=== PATIENT | male | born 1990 | race Two or more races ===

== ENCOUNTER 2020-12-09 13:45 | Inpatient (IN) | payer OTHER ==
[~2020-12-09] VITALS: Ht 182.9 cm; Wt 84.2 kg
--- NOTE | 2020-12-09 13:58 | NUR ---
BIB EMS FROM HOSPITAL [place] AFTER PT WAS CHANGING TIRE AND THE PRESSURE IN TIRE GOT SO HIGH THE TIRE BLEW UP ON PATIENT HAND. PT WENT TO ER IN [place] AND WAS FOUND TO HAVE THUMB,. MIDDLE FINGER LAC AND 5 FX IN THE RIGHT HAND. PT WAS FIVEN 4 MG ZOFRAN AND 8 MG MORPHINE AT OUTLYING FACILITY AND 100 MCG FENTANYL BY EMS. PT RESTING ON GURNEY. NADN. MONITORS APPLIED. VSS.
--- NOTE | 2020-12-09 14:23 | NUR ---
PT RESTING ON GURNEY. NADN. ALAN.
[2020-12-09] MEDS ORDERED: MORPHINE SULFATE 4 MG/ML, 1ML IVPush PRN (15:00)
[2020-12-09] MEDS ORDERED: MORPHINE SULFATE 4 MG/ML, 1ML ONE (15:05)
--- NOTE | 2020-12-09 15:14 | NUR ---
PT RESTING ON GURNEY. NADN. ALAN.
[2020-12-09] MEDS ORDERED: HYDROmorphone 1 MG/ML, 1ML INJ ONE (15:44)
[2020-12-09] MEDS ORDERED: HYDROmorphone 1 MG/ML, 1ML INJ IV STA (15:44)
[2020-12-09] MEDS ORDERED: HYDROmorphone 1 MG/ML, 1ML INJ IV ONE (16:00)
--- NOTE | 2020-12-09 16:02 | NUR ---
PT RESTING ON TITA. GEETA. VSS. PT STATES PAIN IMPROVED.
--- NOTE | 2020-12-09 16:14 | NUR ---
BREAK RN: PT RESTING IN ROOM. VS STABLE. NO ACUTE DISTRESS NOTED. CALL LIGHT IN PLACE WILL CONTINUE TO MONITOR WHILE PRIMARY RN IS ON BREAK.
[2020-12-09] MEDS ORDERED: CEFAZOLIN PMX 2GM/50ML 50 ML IVPB ONE (16:30)
--- NOTE | 2020-12-09 16:51 | NUR ---
PT RESTING ON GURNEY. NADN. ALAN.
--- NOTE | 2020-12-09 16:56 | NUR ---
REPORT GIVEN TO SUJIT POP RN. ALL QUESTIONS ANSWERED. AWAITING PT TRANSPORT.
[2020-12-09] MEDS ORDERED: ACETAMINOPHEN 325 MG TABLET PO PRN ×2 (17:00→18:00)
[2020-12-09] MEDS ORDERED: OXYcodone 5 MG/5 ML ORAL.SOL UDC PO PRN (18:00)
[2020-12-09] MEDS ORDERED: HYDROmorphone 1 MG/ML, 1ML INJ IVPush PRN (18:00)
[2020-12-09] MEDS ORDERED: PROMETHAZINE 25 MG/ML, 1ML IVPush PRN (18:00)
[2020-12-09] MEDS ORDERED: LABETALOL 5MG/ML, 20ML IV PRN (18:00)
[2020-12-09] MEDS ORDERED: ONDANSETRON 2MG/ML, 2ML IVPush PRN (18:00)
[2020-12-09] MEDS ORDERED: MEPERIDINE/PF 25MG/0.5ML IVPush PRN (18:00)
[2020-12-09] MEDS ORDERED: hydrALAzine 20 MG/ML, 1ML IV PRN (18:00)
--- NOTE | 2020-12-09 18:09 | NUR ---
PT RESTING ON GURNEY. NADN. ALAN.
[2020-12-09] MEDS ORDERED: CEFAZOLIN 2,000 MG in SODIUM CHLORIDE 0.9% 50 ML IV SCH (18:30)
[2020-12-09] MEDS ORDERED: MIDAZOLAM 1 MG/ML, 2ML ONE (18:38)
[2020-12-09] MEDS ORDERED: FENTANYL PF 250 MCG/5ML ONE (18:38)
[2020-12-09] MEDS ORDERED: DEXAMETHASONE 4 MG/ML, 5ML ONE (19:10)
[2020-12-09] MEDS ORDERED: PROPOFOL 10 MG/ML, 20ML ONE (19:10)
[2020-12-09] MEDS ORDERED: CEFAZOLIN 1,000 MG ONE (19:22)
[2020-12-09] MEDS ORDERED: ONDANSETRON 2MG/ML, 2ML ONE (19:41)
[2020-12-09] MEDS ORDERED: KETOROLAC 30 MG/1 ML ONE (19:42)
[2020-12-09] MEDS ORDERED: FENTANYL PF 100 MCG/2ML ONE (19:45)
[2020-12-09] MEDS ORDERED: OXYcodone 5 MG/5 ML ORAL.SOL UDC ONE (19:45)
[2020-12-09] MEDS ORDERED: ACETAMINOPHEN 650 MG/20.3 ML UDC ONE (19:45)
[2020-12-09] MEDS: FENTANYL PF 100 MCG/2ML IV PRN ×3 (20:05→20:25)
[2020-12-09] MEDS ORDERED: DIPHENHYDRAMINE 50 MG/ML, 1ML ONE (20:36)
[2020-12-09 21:00] VITALS: BP 146/81
[2020-12-09] MEDS ORDERED: DIPHENHYDRAMINE 50 MG/ML, 1ML IVPush PRN (21:00)
[2020-12-09] MEDS: SODIUM CHLORIDE 0.9% 1,000 ML IV SCH (23:06)
[2020-12-10] VITALS (7 sets, daily range): BP systolic 118–170; BP diastolic 62–86
[2020-12-10] MEDS ORDERED: DIPHENHYDRAMINE 50 MG/ML, 1ML IVPush PRN (00:30)
[2020-12-10] MEDS: CEFAZOLIN PMX 2GM/50ML 50 ML IVPB SCH ×3 (00:57→20:58)
[2020-12-10] MEDS ORDERED: CEFAZOLIN 2,000 MG in SODIUM CHLORIDE 0.9% 50 ML IV SCH (01:00)
[2020-12-10] MEDS: morphine SULFATE 10 MG/ML, 1ML IVPush PRN ×2 (02:45→18:01)
[2020-12-10] MEDS ORDERED: ONDANSETRON 2MG/ML, 2ML IVPush PRN (03:30)
[2020-12-10 05:45] LABS: BASOPHILS % (AUTO) 0 % (0-1); EOSINOPHILS % (AUTO) 0 % (1-7); LYMPHOCYTES % (AUTO) 5 % (22-44); MEAN CORPUSCULAR HEMOGLOBIN 30.9 pg (27.5-34.5); MEAN CORPUSCULAR HGB CONC 33.9 g/dL (33.2-36.2); MONOCYTES % (AUTO) 2 % (2-9); NEUTROPHILS % (AUTO) 93 % (42-75); PLATELET COUNT 265 x10^3/uL (130-400); RED BLOOD COUNT 4.68 x10^6/uL (4.38-5.82); RED CELL DISTRIBUTION WIDTH 13.3 % (9.4-14.8)
[2020-12-10 05:54] LABS: INTERNATIONAL NORMALIZED RATIO 1.1 (0.93-1.1); PROTHROMBIN TIME 11.8 Seconds (9.6-11.5)
[2020-12-10 05:59] LABS: ANION GAP 8 mmol/L (5-15); CALCIUM 8.6 mg/dL (8.5-10.1); CHLORIDE 106 mmol/L (98-107); CREATININE 0.81 mg/dL (0.7-1.3)
[2020-12-10 06:26] LABS: MD SCAN
[2020-12-10] MEDS ORDERED: EPINEPHRINE 1 MG/ML, 1ML ONE (08:46)
[2020-12-10] MEDS ORDERED: BUPIVACAINE/PF 0.5% ONE (08:46)
[2020-12-10] MEDS ORDERED: FENTANYL PF 100 MCG/2ML ONE ×2 (11:32→13:49)
[2020-12-10] MEDS ORDERED: MIDAZOLAM 1 MG/ML, 2ML ONE (11:32)
[2020-12-10] MEDS ORDERED: DEXAMETHASONE 4 MG/ML, 1ML ONE (12:53)
[2020-12-10] MEDS ORDERED: MIDAZOLAM 1 MG/ML, 2ML IV PRN (13:30)
[2020-12-10] MEDS ORDERED: PROMETHAZINE 25 MG/ML, 1ML IVPush PRN (13:30)
[2020-12-10] MEDS ORDERED: OXYcodone 5 MG/5 ML ORAL.SOL UDC PO PRN (13:30)
[2020-12-10] MEDS ORDERED: MEPERIDINE/PF 25MG/0.5ML IVPush PRN (13:30)
[2020-12-10] MEDS ORDERED: FENTANYL PF 100 MCG/2ML IV PRN (13:30)
[2020-12-10] MEDS ORDERED: ACETAMINOPHEN 325 MG TABLET PO PRN (13:30)
[2020-12-10] MEDS ORDERED: LABETALOL 5MG/ML, 20ML IV PRN (13:30)
[2020-12-10] MEDS ORDERED: ALBUTEROL SULFATE 2.5 MG/3 ML NPPB PRN (13:30)
[2020-12-10] MEDS ORDERED: hydrALAzine 20 MG/ML, 1ML IV PRN (13:30)
[2020-12-10] MEDS ORDERED: CEFAZOLIN 1,000 MG ONE (13:36)
[2020-12-10] MEDS ORDERED: LIDOCAINE-MPF 2% ,5ML ONE ×2 (13:36→14:47)
[2020-12-10] MEDS ORDERED: ONDANSETRON 2MG/ML, 2ML ONE (13:36)
[2020-12-10] MEDS ORDERED: PROPOFOL 10 MG/ML, 20ML ONE (13:36)
[2020-12-10] MEDS ORDERED: BUPIVACAINE/PF 0.5% INFIL ONE (14:01)
[2020-12-10] MEDS ORDERED: OXYcodone 5 MG/5 ML ORAL.SOL UDC ONE (15:13)
[2020-12-10] MEDS ORDERED: HYDROmorphone 1 MG/ML, 1ML INJ ONE (15:13)
[2020-12-10] MEDS: HYDROmorphone 1 MG/ML, 1ML INJ IVPush PRN ×2 (15:15→15:22)
[2020-12-10] MEDS: SODIUM CHLORIDE 0.9% 1,000 ML IV SCH (17:51)
[2020-12-10] MEDS: HYDROcodone/APAP 5/325 TABLET PO PRN (20:59)
[2020-12-10] MEDS ORDERED: CEFAZOLIN PMX 2GM/50ML 50 ML IVPB SCH (21:00)
[2020-12-11] MEDS: HYDROcodone/APAP 5/325 TABLET PO PRN ×4 (03:06→21:23)
[2020-12-11 04:31] VITALS: BP 110/61
[2020-12-11] MEDS: CEFAZOLIN PMX 2GM/50ML 50 ML IVPB SCH ×3 (05:30→21:24)
[2020-12-11 05:35] LABS: BASOPHILS % (AUTO) 0 % (0-1); EOSINOPHILS % (AUTO) 0 % (1-7); LYMPHOCYTES % (AUTO) 15 % (22-44); MEAN CORPUSCULAR HEMOGLOBIN 30.7 pg (27.5-34.5); MEAN CORPUSCULAR HGB CONC 34.1 g/dL (33.2-36.2); MEAN PLATELET VOLUME 7.7 fL (7.4-10.4); MONOCYTES % (AUTO) 7 % (2-9); NEUTROPHILS % (AUTO) 78 % (42-75); PLATELET COUNT 264 x10^3/uL (130-400); RED CELL DISTRIBUTION WIDTH 13.1 % (9.4-14.8)
[2020-12-11 05:36] LABS: MD NO
[2020-12-11 05:44] LABS: ANION GAP 4 mmol/L (5-15); CALCIUM 8.2 mg/dL (8.5-10.1); CHLORIDE 106 mmol/L (98-107); CREATININE 0.76 mg/dL (0.7-1.3)
[2020-12-11 07:52] VITALS: BP 124/75
[2020-12-11] MEDS: SODIUM CHLORIDE 0.9% 1,000 ML IV SCH (09:32)
[2020-12-11 14:15] VITALS: BP 134/74
[2020-12-11] MEDS ORDERED: MAGNESIUM HYDROXIDE 8%, 30ML UDC PO PRN (17:00)
[2020-12-11] MEDS ORDERED: POLYETHYLENE GLYCOL 17 GM PACKET ONE (17:05)
[2020-12-11] MEDS: POLYETHYLENE GLYCOL 17 GM PACKET PO PRN (17:07)
[2020-12-11 19:40] VITALS: BP 135/84
[2020-12-11] MEDS: DOCUSATE 100 MG CAPSULE PO SCH (21:23)
[2020-12-12 01:28] VITALS: BP 129/78
[2020-12-12] MEDS: HYDROcodone/APAP 5/325 TABLET PO PRN ×3 (04:26→16:26)
[2020-12-12] MEDS: CEFAZOLIN PMX 2GM/50ML 50 ML IVPB SCH ×2 (05:08→14:31)
[2020-12-12 07:05] VITALS: BP 144/87
[2020-12-12] MEDS: POLYETHYLENE GLYCOL 17 GM PACKET PO PRN (08:07)
[2020-12-12] MEDS: DOCUSATE 100 MG CAPSULE PO SCH (08:07)
[2020-12-12] MEDS ORDERED: POLYETHYLENE GLYCOL 17 GM PACKET PO SCH (09:00)
[2020-12-12] MEDS ORDERED: MAGNESIUM CITRATE 300ML ORAL SOL PO ONE (09:30)
[2020-12-12] MEDS ORDERED: BISACODYL 10 MG SUPP PR PRN (09:30)
[2020-12-12] MEDS ORDERED: HYDR-1067 PO ×2 (12:54→13:07)
[2020-12-12 16:10] VITALS: BP 132/81
== END 2020-12-12 16:38 | disposition home or self-care (01) | DRG 514 ==
LOC: ED 15:21 → EDIP 16:29 → 4NE 21:10 → DCLOUNGE 12-12 16:31
PROVIDERS: ADMIT Family Medicine; ATTEND Family Medicine
PROC: 0PBP0ZZ Excision of Right Metacarpal, Open Approach (ICD-10-PCS; 2020-12-09)
PROC: 0PSP34Z Reposition Right Metacarpal with Internal Fixation Device, Percutaneous Approach (ICD-10-PCS; principal; 2020-12-09 18:30)
PROC: 0PSP34Z Reposition Right Metacarpal with Internal Fixation Device, Percutaneous Approach (ICD-10-PCS; 2020-12-11)
PROC: 0PSP34Z Reposition Right Metacarpal with Internal Fixation Device, Percutaneous Approach (ICD-10-PCS; 2020-12-11)
PROC: 0PSP34Z Reposition Right Metacarpal with Internal Fixation Device, Percutaneous Approach (ICD-10-PCS; 2020-12-11)
PROC: 0PSP34Z Reposition Right Metacarpal with Internal Fixation Device, Percutaneous Approach (ICD-10-PCS; 2020-12-11)
PROC: 0PSP34Z Reposition Right Metacarpal with Internal Fixation Device, Percutaneous Approach (ICD-10-PCS; 2020-12-11)
DX: S62.141A Displaced fracture of body of hamate [unciform] bone, right wrist, initial encounter for closed fracture (principal); S62.392A Other fracture of third metacarpal bone, right hand, initial encounter for closed fracture; S62.396A Other fracture of fifth metacarpal bone, right hand, initial encounter for closed fracture; S62.171A Displaced fracture of trapezium [larger multangular], right wrist, initial encounter for closed fracture; S62.511A Displaced fracture of proximal phalanx of right thumb, initial encounter for closed fracture; S62.610A Displaced fracture of proximal phalanx of right index finger, initial encounter for closed fracture; S62.291A Other fracture of first metacarpal bone, right hand, initial encounter for closed fracture; W23.0XXA Caught, crushed, jammed, or pinched between moving objects, initial encounter; G56.01 Carpal tunnel syndrome, right upper limb; Z20.822 Contact with and (suspected) exposure to COVID-19; S61.411A Laceration without foreign body of right hand, initial encounter; S63.056A Dislocation of other carpometacarpal joint of unspecified hand, initial encounter; Y92.513 Shop (commercial) as the place of occurrence of the external cause; Y93.89 Activity, other specified; Y99.0 Civilian activity done for income or pay; Z79.899 Other long term (current) drug therapy
CPT/HCPCS: 36415; 73110; 73130; 76000; 96374; 96375; 99285; J3490; S0020; 80048; 85025; 85610; 87635; C1713; G0378; J0171; J0690; J1100; J1170; J1885; J2250; J2405; J2704; J3010; J1200; J2270; J7030